=== PATIENT | male | born 1955 | race Caucasian/White ===

== ENCOUNTER 2021-11-20 10:01 | Observation (INO) ==
[2021-11-20 10:27] LABS: Basophils # 0.1 10*3/uL (0.0-0.2); Eosinophils # 0.7 10*3/uL (0.0-0.87); Eosinophils % 7.7 % (0.00-10.9); Hematocrit 44.9 VOL% (42.0-52.0); Hemoglobin 14.9 GM/DL (14.0-18.0); Immature Granulocytes % 0.5 %; Immature Granulocytes Absolute 0.05 #; Lymphocytes # 3.3 10*3/uL (1.4-4.0); Lymphocytes % 35.3 % (21.2-54.2); Mean Corpuscular HGB Conc 33.2 GM/DL (32-36); Mean Corpuscular Volume 88.9 FL (87-102); Mean Platelet Volume 10.7 FL (9.6-12.0); Monocytes % 9.8 % (1.7-12.7); Neutrophils % 45.7 % (38.7-73.9); Platelet Count 249 T/CUMM (130-400); Red Blood Count 5.05 MC/CUMM (3.8-5.5); Red Cell Distribution Width 12.3 % (9.3-17.3); White Blood Count 9.2 T/CUMM (4-12)
[2021-11-20] MEDS ORDERED: ENOXAPARIN 100 MG/ML SYRINGE SUBCUT STA (10:33)
[2021-11-20] MEDS ORDERED: ASPIRIN 325 MG TABLET PO STA (10:33)
[2021-11-20] MEDS ORDERED: LABETALOL 20 MG/4 ML SYRINGE IV STA (11:20)
[2021-11-20] MEDS ORDERED: amLODIPine 5 MG TABLET PO STA (11:20)
[2021-11-20 11:47] LABS: Albumin 3.4 G/DL (3.4-5.0); Bilirubin,Total 0.5 MG/DL (0.20-1.00); Calcium 9.5 MG/DL (8.5-10.1); Potassium 4.7 MMOL/L (3.5-5.1); Total Protein 7.6 G/DL (6.4-8.2)
[2021-11-20] MEDS ORDERED: NITROGLYCERIN SL 0.4 MG TABLET SL PRN (12:09)
[2021-11-20] MEDS ORDERED: hydrALAZINE 20 MG/1 ML VIAL IV PRN (12:11)
[2021-11-20] MEDS ORDERED: GLUCAGON 1 MG VIAL IM PRN (12:24)
[2021-11-20] MEDS ORDERED: ONDANSETRON 4 MG/2 ML VIAL IV PRN (12:24)
[2021-11-20] MEDS ORDERED: DEXTROSE 10% 250 ML BAG IV PRN (12:35)
[2021-11-20] MEDS ORDERED: lisinopriL 10 MG TABLET PO SCH (16:00)
[2021-11-20] MEDS ORDERED: ROSUVASTATIN 20 MG TABLET PO SCH (21:00)
[2021-11-20] MEDS ORDERED: carvediloL 6.25 MG TABLET PO SCH (21:00)
[2021-11-21 06:25] LABS: Risk Ratio 6.49
[2021-11-21] MEDS ORDERED: amLODIPine 5 MG TABLET PO SCH (09:00)
[2021-11-21] MEDS ORDERED: PANTOPRAZOLE 40 MG TABLET PO SCH (09:00)
[2021-11-21] MEDS ORDERED: ASPIRIN EC 81 MG TABLET PO SCH (09:00)
[2021-11-21] MEDS ORDERED: ENOXAPARIN 40 MG/0.4 ML SYRINGE SUBCUT SCH (10:30)
[2021-11-21 12:42] VITALS: BP 148/80
== END 2021-11-21 13:58 | disposition home or self-care (01) ==
LOC: N.EDINP 10:01 → N.ED 10:01 → SUATTDRO 12:24 → N.TELES 20:18
PROVIDERS: ADMIT Internal Medicine; ATTEND Emergency Medicine